=== PATIENT | male | born 1965 | race Caucasian/White ===

== ENCOUNTER 2016-07-29 06:04 | Inpatient (IN) | payer OTHER ==
--- NOTE | 2016-07-28 16:28 | GHP ---
DATE OF ADMISSION: 07/29/2016 ADMISSION DIAGNOSIS: Adenocarcinoma of the prostate, Mahamed score 7. This is a 50-year-old gentleman, who I had seen originally because of an elevated PSA and he had noc turia 2 times per night. PSA was 3.5, on a recent test and had had a high of 3.9 as of 09/28/2015. He had a transrectal ultrasound and biopsy that revealed a Boston score 3+4=7, with perineural inv asion. He had a normal bone scan and 3 of the 6 cores sites were positive with 90% on the largest c ore and the biopsy positive side was his left side. The right side was benign. At the present time he has had second opinions with Radiation Oncology and after discussion he has elected to undergo a bilateral pelvic lymphadenectomy and radical retropubic prostatectomy robotically. His Prolaris sc ore was 4.7, and he had a PSA density on the ultrasound of 0.15 and his prostate volume on the ultra sound revealed a 25.9 g. He has normal erections and realizes that 1 of the risks of surgery would be potentially sexual dysfunction, as well as erectile dysfunction and urinary incontinence. Sarie n and verbal consent was obtained and he is to be admitted for the above procedure. PAST HISTORY: He has had asthma. PAST SURGICAL HISTORY: Appendectomy, eye surgery, inguinal hernia, knee surgery of the leg. MEDICATIONS: Levothyroxine. ALLERGIES: To penicillin. FAMILY HISTORY: Positive for prostate cancer. SOCIAL HISTORY: Moderate alcohol consumption. Occasional smoker. He is . 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 REVIEW OF SYSTEMS: Negative cardiac, respiratory, GI and endocrine. PHYSICAL EXAM: VITAL SIGNS: Stable. CHEST: Clear. HEART: Regular rate and rhythm. ABDOMEN: N ormal. No organomegaly, rebound or guarding. EXTREMITIES: Lower extremities are normal. RECTAL: Revealed a firm ridge on the right side of the prostate. At the present time he is admitted for the above procedure. /[id number]/MODL
[~2016-07-29 06:04] MED LIST: D5W LR 1,000 ML IV ONE
[2016-07-29] MEDS ORDERED: LIDOCAINE 1% 5 ML SDV ONE (06:32)
[2016-07-29] MEDS ORDERED: LR 1,000 ML IV ONE (06:37)
[2016-07-29] MEDS ORDERED: LIDOCAINE 1% 5 ML SDV ID PRN (06:37)
[2016-07-29] MEDS ORDERED: BUPIVACAINE 0.5% 30 ML SDV ONE (06:52)
[2016-07-29] MEDS ORDERED: SKIN ADHESIVE (DERMABOND) 1 EACH TP ONE (06:52)
[2016-07-29] MEDS ORDERED: MIDAZOLAM 2 MG/2 ML VIAL ONE (07:14)
[2016-07-29] MEDS ORDERED: PROPOFOL/EMULSION 500 MG/50 ML BOTTLE IV ONE ×2 (07:20→09:11)
[2016-07-29] MEDS ORDERED: DEXAMETHASONE 4 MG/ML VIAL ONE ×2 (07:20)
[2016-07-29] MEDS ORDERED: ROCURONIUM 50 MG/5 ML VIAL ONE ×2 (07:20→08:50)
[2016-07-29] MEDS ORDERED: REMIFENTANIL HCL 1 MG VIAL ONE ×2 (07:20→09:11)
[2016-07-29] MEDS ORDERED: fentaNYL 100 MCG/2 ML INJ ONE (07:20)
[2016-07-29] MEDS ORDERED: LIDOCAINE 2% 100 MG/5 ML SYR IVP ONE (07:21)
[2016-07-29] MEDS ORDERED: LIDOCAINE HCL 160 MG/4 ML LTA KIT TP ONE (07:21)
[2016-07-29] MEDS ORDERED: ONDANSETRON 4 MG/2 ML VIAL ONE (07:21)
[2016-07-29] MEDS ORDERED: ceFAZolin 2 GM/DEXTROSE 100 ML IV ONE (07:30)
[2016-07-29] MEDS ORDERED: PHENYLEPHRINE HCL 100 MCG/ML SYR ONE ×2 (07:43→08:55)
[2016-07-29] MEDS ORDERED: THROMBIN(HUM PLAS)/FIBRINOG/CA 5 ML VIAL TP ONE (09:21)
[2016-07-29] MEDS ORDERED: morphINE *ANESTHESIA ONLY* 10 MG/ML VIAL ONE (10:04)
[2016-07-29] MEDS ORDERED: PROPOFOL 200 MG/20 ML VIAL ONE (10:13)
[2016-07-29] MEDS ORDERED: SUGAMMADEX SODIUM 200 MG/2 ML VIAL IVP ONE (10:15)
[2016-07-29] MEDS ORDERED: NALOXONE HCL 0.4 MG/ML INJ ONE (10:28)
[2016-07-29] MEDS ORDERED: oxyCODONE IR 5 MG TAB PO PRN (10:57)
[2016-07-29] MEDS ORDERED: ONDANSETRON 4 MG/2 ML VIAL IVP PRN (10:57)
[2016-07-29] MEDS ORDERED: ACETAMINOPHEN 325 MG TAB PO PRN (10:57)
[2016-07-29] MEDS ORDERED: ONDANSETRON DISINTEGRATING 4 MG TAB PO PRN (10:57)
[2016-07-29] MEDS: D5W 1/2 NS 1,000 ML IV SCH ×2 (13:37→23:23)
--- NOTE | 2016-07-29 14:06 | GOP ---
DATE OF OPERATION: 07/29/2016 SURGEON: Bassam Aceves MD MANAGER R D: Shantell Wright CFA ANESTHESIOLOGIST: Bg Wesley MD PREOPERATIVE DIAGNOSIS: Prostate cancer. POSTOPERATIVE DIAGNOSIS: Prostate cancer. PROCEDURE PERFORMED: Robotic-assisted radical prostatectomy and pelvic lymph node dissection. FINDINGS: SPECIMENS: Prostate, seminal vesicles, and then left pelvic lymph nodes. He will be admitted for postoperative care. I will discuss the issues with his friends. No frozen se ctions were performed. ESTIMATED BLOOD LOSS: Per anesthesia. DESCRIPTION OF PROCEDURE: The gentleman underwent general anesthesia and after appropriate timeout and being prepped and draped in normal sterile fashion in the strategic position for robot surgery i n the pelvis, had a Veress needle placed in the supraumbilical site. The abdomen was inflated with c arbon dioxide to 15 mmHg pressure. Then, at that point, I strategically placed the three 8 mm robot arm ports and the 12 mm bindery assistant port. At that point, I was able to investigate the abdomen. There was no pathology noted in the abdomen. He had some adhesions on the right side of the abdomen from h is prior hernia repair that were taken down, and I could see mesh on the right side of the pelvis. A t that point, I started from a posterior approach, incised the peritoneum, and then identified the a mpulla, vas deferens and seminal vesicles on both the right and left sides. Hemostasis was with Hem- o-Tony and electrocautery. Mobilized the posterior part of the prostate separate from the rectum, and then went anterior and because of his previous laparoscopic hernia repair, the space of Retzius was totally welded with the anatomic lines being significantly altered. So, I was able to eventually ge t down to the anterior part of the prostate and below Rajesh's ligament, and that space, once again had been previously violated and was scarred. At that point, I could identify the endopelvic fascia on the right and left sides, and it was incised and muscle swept lateral, and then I could identify the apex of the prostate and placed an M stitch of 0 Vicryl, 2 of those for hemostasis. Then, at teagan t point, focused our attention on the bladder neck which was taken down sharply and entered the blad varun neck and mobilized the posterior bladder neck off of the base of the prostate. The ampulla, the vas deferens, seminal vesicle brought anterior to the bladder neck. Then, because of his inflammator y reaction, diffuse and multiple dilated venous complex in the pelvis, I elected to use the tissue s ealer. So that was used and stayed on the soft tissue lateral to the left side of the prostate where the tumor burden was, and on the right side, tried to sweep as much of the vasculature separate fro m the prostate, and hemostasis was provided. At that point, I identified the anterior part of the pr ostate and dissected it off, and even that area had inflammation from his prior hernia repair. Disse cted deep dorsal vein complex off of the anterior part of the urethra. Transected the urethra and th e apex of the prostate. Inspection revealed no gross residual prostate tissue at any of the sites. T kendra, at that point, the right neurovascular bundle appeared to be intact. The left was absent. I use d a Juan Luis stitch to approximate the posterior part of the bladder down to the rectourethralis and th en did a 4-0 Monocryl suture closure of the anastomosis of the bladder neck to the urethra. This isabella dged with a 22-Danish catheter and it appeared to be water tight. We did enforce that with Evicel. B ecause the right side of his pelvis was quite scarred from his previous hernia repair, I elected not to do the right-sided lymph nodes, and he had no tumor on the right side. So, the left-sided nodes were dissected out using the middle aspect of the external iliac vein and the bifurcation. I could i dentify the obturator nerve and the depth. There was just a wisp of tissue with no significant gross lymphatics or nodes, and that tissue was sent for pathologic assessment. Hemostasis noted. Dropped the pressure to 5 mmHg. No bleeding was identified. At that point, the Pepe-Rainey drain was place d. After bagging the prostate and undocking the robot, the 12 mm port on the left side of the abdome n was closed with a suture passer device 0 Vicryl, and then we opened the camera port site, delivere d the prostate, and then that was closed with an 0 Vicryl. Subcutaneous tissue was hemostatic, and t hen intradermal 4-0 Monocryl closed the wounds. Drain was sewn in place with silk, and Dermabond was used to produce protection of the skin edges. COMPLICATIONS: None. /[id number]/MODL
[2016-07-30 00:56] VITALS: RESP 16
[2016-07-30 05:04] LABS: % IMMATURE GRANULYOCYTES 0.3 % (0.0-1.1); ABSOLUTE IMMATURE GRANULOCYTES 0.03 10^3/uL (0.00-0.10); ADD DIFF? NO; ADD MORPH? NO; ADD SCAN? NO; ATYPICAL LYMPHOCYTE FLAG 0 (0-99); FRAGMENT RBC FLAG 0 (0-99); HEMATOCRIT 43.5 % (40.0-51.0); HEMOGLOBIN 15.1 g/dL (13.7-17.5); LEFT SHIFT FLG 0 (0-99); LIPEMIA HEMOLYSIS FLAG 90 (0-99); MEAN CELL HEMOGLOBIN 29.5 pg (27.9-34.1); MEAN CELL HEMOGLOBIN CONCENTR. 34.7 g/dL (32.4-36.7); MEAN CELL VOLUME 85.1 fL (81.5-99.8); MEAN PLATELET VOLUME 9.5 fL (8.7-11.7); PLATELET CLUMPS FLAG 0 (0-99); PLATELET COUNT 284 10^3/uL (150-400); RED BLOOD CELL COUNT 5.11 10^6/uL (4.40-6.38); RED CELL DISTRIBUTION WIDTH 12.1 % (11.5-15.2)
[2016-07-30 05:36] LABS: ANION GAP 7 mEq/L (8-16); CALCIUM 8.6 mg/dL (8.5-10.4); CARBON DIOXIDE 26 mEq/l (22-31); CHLORIDE 103 mEq/L (97-110); CREATININE 0.8 mg/dL (0.7-1.3); GLOMERULAR FILTRATION RATE > 60; GLUCOSE 121 mg/dL (70-100); POTASSIUM 4.5 mEq/L (3.5-5.2); SODIUM 136 mEq/L (134-144)
[2016-07-30] MEDS ORDERED: LEVOTHYROXINE 88 MCG TAB PO SCH (06:00)
--- NOTE | 2016-07-30 07:39 | SOAPPROG ---
SOAP Progress Note Assessment/Plan: Assessment: Adenocarcinoma of prostate, stage 2 Acute POD 1, doing well, need GI tract fx prior to PO progress Plan: dc later today 07/30/16 07:37 Subjective: doing well, abdominal pain noted, no flatus yet Objective: Vital Signs Temp Pulse Resp BP Pulse Ox 37.1 C 94 16 142/77 H 91 L 07/30/16 05:46 07/30/16 05:46 07/30/16 05:46 07/30/16 05:46 07/30/16 05:46 Laboratory Results 07/30/16 04:57 07/30/16 04:57 07/29/16 07/30/16 07/31/16 05:59 05:59 05:59 Intake Total 5258 Output Total 3095 Balance 2163 Physical Exam - Physical Exam General Appearance: alert Neck: supple Respiratory: No respiratory distress Cardiac/Chest: regular rate, rhythm Abdomen: other (post op tenderness) Back: No CVA tenderness Extremities: No calf tenderness, No Julio César's sign Neuro/Psych: alert, oriented x 3 ICD10 Worksheet Patient Problems: Problems Problem Status Onset Adenocarcinoma of prostate, stage 2 Acute
[2016-07-30 08:11] VITALS: BP 132/91; PULSE 77; TEMP 98.6; O2SAT 94
[2016-07-30] MEDS ORDERED: Herbals/Supplements -Info Only PO SCH (09:00)
[2016-07-30] MEDS ORDERED: HYDROCODONE/APAP 5/325 TAB PO PRN (15:12)
--- NOTE | 2016-07-30 21:59 | GDS ---
PREOPERATIVE DIAGNOSIS: Prostate carcinoma. POSTOPERATIVE DIAGNOSIS: Prostate carcinoma. HOSPITAL COURSE: This is a pleasant 50-year-old gentleman who was evaluated in our office for an el evated PSA. Upon workup in the office, it was determined he had prostate cancer. After a full disc ussion of all of his options, he elected to have a radical prostatectomy which he underwent without complications. He is being discharged home in good condition. His abdomen is firm, but nondistende d, and mildly tender to palpation over the incision sites. [place] urine in catheter bag. The patient is to follow up in the office in 10-14 days for a voiding trial and in 3 weeks for pathology review . /[id number]/MODL
== END 2016-07-30 16:20 | disposition home or self-care (01) | DRG 708 ==
LOC: F1N 06:04
PROVIDERS: ADMIT Specialist; ATTEND Specialist
PROC: 07TC4ZZ Resection of Pelvis Lymphatic, Percutaneous Endoscopic Approach (ICD-10-PCS; principal; 2016-07-29 07:15)
PROC: 8E0WXCZ Robotic Assisted Procedure of Trunk Region (ICD-10-PCS; principal; 2016-07-29 07:15)
PROC: 0VT04ZZ Resection of Prostate, Percutaneous Endoscopic Approach (ICD-10-PCS; principal; 2016-07-29 07:15)
PROC: 0VB34ZZ Excision of Bilateral Seminal Vesicles, Percutaneous Endoscopic Approach (ICD-10-PCS; principal; 2016-07-29 07:15)
DX: C61 Malignant neoplasm of prostate (principal); E03.9 Hypothyroidism, unspecified; Z80.42 Family history of malignant neoplasm of prostate
CPT/HCPCS: J0690; J1100; J2001; J2250; J2310; J2370; J2405; J2704; J3010